=== PATIENT | female | born 1950 | race Caucasian/White ===

== ENCOUNTER 2016-04-04 13:04 | Outpatient (CLI) | payer MEDICARE, OTHER | END 2016-04-04 13:05 | disposition home or self-care (01) | DX: G47.33 Obstructive sleep apnea (adult) (pediatric) (principal) | CPT/HCPCS: 99213; G0463 ==

== ENCOUNTER 2016-05-27 07:34 | Outpatient (CLI) | payer MEDICARE, OTHER | END 2016-05-27 07:35 | disposition home or self-care (01) | DX: R30.0 Dysuria (principal) ==

== ENCOUNTER 2016-09-27 07:27 | Day surgery (SDC) | payer MEDICARE, OTHER ==
[~2016-09-27 07:27] MED LIST: LACTATED RINGERS 1,000 ML IV ONE
[2016-09-27 07:56] LABS: BASOPHILS # (AUTO) 0.1 10^3/uL (0.0-0.1); BASOPHILS % (AUTO) 1.4 %; EOSINOPHILS # (AUTO) 0.1 10^3/uL (0.0-0.7); EOSINOPHILS % (AUTO) 1.2 %; HCT - HEMATOCRIT 40.2 % (37.0-47.0); HGB - HEMOGLOBIN 13.4 g/dL (12.0-16.0); LYMPHOCYTES # (AUTO) 2.2 10^3/uL (1.5-3.5); LYMPHOCYTES % (AUTO) 20.8 %; MEAN CORPUSCULAR HGB CONC 33.4 g/dL (32.0-36.0); MEAN CORPUSCULAR VOLUME 83.9 fL (81.0-99.0); MEAN PLATELET VOLUME 7.6 fL (7.9-10.8); MONOCYTES # (AUTO) 0.7 10^3/uL (0.0-1.0); MONOCYTES % (AUTO) 6.5 %; NEUTROPHILS # (AUTO) 7.6 10^3/uL (1.5-6.6); NEUTROPHILS % (AUTO) 70.1 %; RED CELL DISTRIBUTION WIDTH 14.4 % (12.0-15.0); UNCORRECTED WHITE BLOOD COUNT 10.8 x10^3/uL; WHITE BLOOD COUNT 10.8 x10^3/uL (4.8-10.8)
[2016-09-27] MEDS ORDERED: fentaNYL 100 MCG/2 ML VIAL IVP ONE (08:16)
[2016-09-27] MEDS ORDERED: MIDAZOLAM 2 MG/2 ML VIAL IVP ONE (08:16)
[2016-09-27 09:18] VITALS: BP 157/80
== END 2016-09-27 07:28 | disposition home or self-care (01) ==
LOC: SDS 07:27
PROVIDERS: ATTEND Surgery
PROC: 0DBK8ZX Excision of Ascending Colon, Via Natural or Artificial Opening Endoscopic, Diagnostic (ICD-10-PCS; principal; 2016-09-27 08:30)
DX: Z12.11 Encounter for screening for malignant neoplasm of colon (principal); D12.2 Benign neoplasm of ascending colon; K57.30 Diverticulosis of large intestine without perforation or abscess without bleeding; R19.7 Diarrhea, unspecified; G47.30 Sleep apnea, unspecified; I10 Essential (primary) hypertension; K21.9 Gastro-esophageal reflux disease without esophagitis; F32.9 Major depressive disorder, single episode, unspecified; E11.9 Type 2 diabetes mellitus without complications; F41.9 Anxiety disorder, unspecified; Z83.71 Family history of colonic polyps; Z80.0 Family history of malignant neoplasm of digestive organs; Z79.84 Long term (current) use of oral hypoglycemic drugs; Z90.49 Acquired absence of other specified parts of digestive tract; Z87.891 Personal history of nicotine dependence; Z79.82 Long term (current) use of aspirin
CPT/HCPCS: 45384; 85025; J7120; 88305

== ENCOUNTER 2016-11-18 08:38 | Outpatient (CLI) | payer MEDICARE, OTHER ==
[2016-11-18 19:18] LABS: BASOPHILS # (AUTO) 0.1 10^3/uL (0.0-0.1); BASOPHILS % (AUTO) 0.9 %; EOSINOPHILS # (AUTO) 0.2 10^3/uL (0.0-0.7); EOSINOPHILS % (AUTO) 1.9 %; HCT - HEMATOCRIT 41.1 % (37.0-47.0); HGB - HEMOGLOBIN 13.3 g/dL (12.0-16.0); LYMPHOCYTES # (AUTO) 3.2 10^3/uL (1.5-3.5); LYMPHOCYTES % (AUTO) 27.5 %; MEAN CORPUSCULAR HEMOGLOBIN 28.1 pg (27.0-31.0); MEAN CORPUSCULAR HGB CONC 32.5 g/dL (32.0-36.0); MEAN CORPUSCULAR VOLUME 86.4 fL (81.0-99.0); MEAN PLATELET VOLUME 8.5 fL (7.9-10.8); MONOCYTES # (AUTO) 0.8 10^3/uL (0.0-1.0); MONOCYTES % (AUTO) 6.5 %; NEUTROPHILS # (AUTO) 7.4 10^3/uL (1.5-6.6); NEUTROPHILS % (AUTO) 63.2 %; NUCLEATED RED BLOOD CELLS AUTO 0.1 /100WBC; RED BLOOD COUNT 4.75 10^6/uL (4.20-5.40); RED CELL DISTRIBUTION WIDTH 14.3 % (12.0-15.0); UNCORRECTED WHITE BLOOD COUNT 11.6 x10^3/uL; WHITE BLOOD COUNT 11.6 x10^3/uL (4.8-10.8)
[2016-11-18 19:53] LABS: ALBUMIN/GLOBULIN RATIO 1.3 (1.0-2.2); BILIRUBIN,TOTAL 0.4 mg/dL (0.2-1.0); BUN - BLOOD UREA NITROGEN 21 mg/dL (6-20); CALCIUM 9.5 mg/dL (8.5-10.3); CARBON DIOXIDE - CO2 26 mmol/L (21-32); CHLORIDE 107 mmol/L (101-111); CHOL/HDL RATIO 4.4 (<4.4); CHOLESTEROL 257 mg/dL; CREATININE 1.1 mg/dL (0.4-1.0); GFR - MDRD 49 (>89); GLUCOSE 107 mg/dL (70-100); HDL CHOLESTEROL 58 mg/dL; LDL/HDL RATIO 2.3 (<4.4); POTASSIUM 4.3 mmol/L (3.5-5.0); SODIUM 142 mmol/L (135-145); TOTAL PROTEIN 7.5 g/dL (6.7-8.2); TRIGLYCERIDES 332 mg/dL; VLDL CHOLESTEROL 66 mg/dL
[2016-11-18 20:52] LABS: HEMOGLOBIN A1C 0.55 g/dL
== END 2016-11-18 08:39 | disposition home or self-care (01) ==
LOC: LAB.F 08:38
PROVIDERS: ATTEND Family Medicine
DX: E11.9 Type 2 diabetes mellitus without complications (principal); E78.5 Hyperlipidemia, unspecified
CPT/HCPCS: 36415; 80053; 80061; 82043; 83036; 84443; 85025

== ENCOUNTER 2017-01-03 09:08 | Outpatient (CLI) | payer MEDICARE, OTHER ==
--- NOTE | 2017-01-04 15:21 | Mammography Report ---
DIGITAL SCREENING MAMMOGRAM: 01/03/2017 CLINICAL INDICATION: A 66-year-old with family history of breast cancer, for screening. COMPARISON: 10/2015, 04/2014, 12/2011, 08/2010, 06/2009. TECHNIQUE: Routine CC and MLO projections were obtained of the breasts. FINDINGS: The breasts again demonstrate heterogeneously dense fibroglandular parenchyma bilaterally. Coarse and punctate, typically benign calcifications are present. No suspicious masses, clustered mi crocalcifications, or regions of architectural distortion are identified. IMPRESSION: BENIGN FINDINGS. RECOMMENDATION: ROUTINE ANNUAL SCREENING UNLESS OTHERWISE CLINICALLY INDICATED. BIRADS CATEGORY 2-BENIGN FINDINGS. STANDARD QUALIFYING STATEMENTS 1. This examination was reviewed with the aid of Computer-Aided Detection (CAD). 2. A negative or benign imaging report should not delay biopsy if clinically suspicious findings are present. Consider surgical consultation if warranted. More than 5% of cancers are not identified by i maging. 3. Dense breasts may obscure an underlying neoplasm. :9 JOB #: [id number] EXT JOB #:[id number]
== END 2017-01-03 09:09 | disposition home or self-care (01) ==
LOC: DI 09:08
PROVIDERS: ATTEND Family Medicine
DX: Z12.31 Encounter for screening mammogram for malignant neoplasm of breast (principal); Z80.3 Family history of malignant neoplasm of breast
CPT/HCPCS: 77067

== ENCOUNTER 2018-01-08 11:19 | Outpatient (CLI) | payer MEDICARE, OTHER ==
--- NOTE | 2018-01-09 14:33 | Mammography Report ---
Reason: SCREENING MAMMO Procedure Date: 01/08/2018 Accession Number: [id number] / [id number] Procedure: BRAULIO - Screening Mammo w/Parmjit CPT Code: FULL RESULT: EXAM: Screening Mammo w/Parmjit DATE: 01/08/2018 11:53 AM CLINICAL HISTORY: Routine screening TECHNIQUE: Bilateral CC and MLO views were obtained. COMPARISON: 01/03/2017, 11/12/2015, 04/21/2014 and 12/20/11 FINDINGS: The breast tissue is heterogeneously dense. There is no significant interval change. No suspicious masses, clustered microcalcifications, or regions of architectural distortion are identified. Scattered calcifications are stable. IMPRESSION: Benign findings RECOMMENDATION: Routine annual screening unless otherwise clinically indicated. BIRADS CATEGORY 2: Benign findings STANDARD QUALIFYING STATEMENTS: 1. This examination was not reviewed with the aid of Computer-Aided Detection (CAD). 2. A negative or benign imaging report should not delay biopsy if clinically suspicious findings are present. Consider surgical consultation if warrented. More than 5% of cancers are not identified by imaging. 3. Dense breasts may obscure an underlying neoplasm. 4. This examination was reviewed with the aid of 3D breast imaging (tomosynthesis).
== END 2018-01-08 11:20 | disposition home or self-care (01) ==
LOC: DI 11:19
DX: Z12.31 Encounter for screening mammogram for malignant neoplasm of breast (principal)
CPT/HCPCS: 77063; 77067

== ENCOUNTER 2018-06-08 10:30 | Outpatient (CLI) | payer MEDICARE, OTHER ==
[2018-06-08 10:48] LABS: BASOPHILS # (AUTO) 0.1 10^3/uL (0.0-0.1); BASOPHILS % (AUTO) 1.6 %; EOSINOPHILS # (AUTO) 0.2 10^3/uL (0.0-0.7); EOSINOPHILS % (AUTO) 1.8 %; HGB - HEMOGLOBIN 13.1 g/dL (12.0-16.0); LYMPHOCYTES # (AUTO) 2.4 10^3/uL (1.5-3.5); LYMPHOCYTES % (AUTO) 27.2 %; MEAN CORPUSCULAR HEMOGLOBIN 28.9 pg (27.0-31.0); MEAN CORPUSCULAR HGB CONC 33.6 g/dL (32.0-36.0); MEAN CORPUSCULAR VOLUME 86.1 fL (81.0-99.0); MEAN PLATELET VOLUME 7.9 fL (7.9-10.8); MONOCYTES # (AUTO) 0.8 10^3/uL (0.0-1.0); MONOCYTES % (AUTO) 8.7 %; NEUTROPHILS # (AUTO) 5.3 10^3/uL (1.5-6.6); NEUTROPHILS % (AUTO) 60.7 %; PLT - PLATELET COUNT 389 10^3/uL (130-450); RED BLOOD COUNT 4.52 10^6/uL (4.20-5.40); RED CELL DISTRIBUTION WIDTH 14.1 % (12.0-15.0); WHITE BLOOD COUNT 8.7 x10^3/uL (4.8-10.8)
[2018-06-08 11:07] LABS: HB2 TOTAL 14.3 g/dL; HEMOGLOBIN A1C 0.57 g/dL; HEMOGLOBIN A1C % 5.8 % (4.6-6.2)
[2018-06-08 11:13] LABS: ALBUMIN 4.4 g/dL (3.2-5.5); ALBUMIN/GLOBULIN RATIO 1.3 (1.0-2.2); ALKALINE PHOSPHATASE 65 IU/L (42-121); ALT ALANINE AMINOTRANSFERASE 13 IU/L (10-60); AST ASPARTATE AMINOTRANSFERASE 17 IU/L (10-42); BILIRUBIN,TOTAL 0.5 mg/dL (0.2-1.0); BUN - BLOOD UREA NITROGEN 19 mg/dL (6-20); CALCIUM 9.3 mg/dL (8.5-10.3); CARBON DIOXIDE - CO2 24 mmol/L (21-32); CHLORIDE 104 mmol/L (101-111); CHOL/HDL RATIO 4.1 (<4.4); CHOLESTEROL 219 mg/dL; CREATININE 0.9 mg/dL (0.4-1.0); GFR - MDRD 62 (>89); GLUCOSE 95 mg/dL (70-100); HDL CHOLESTEROL 53 mg/dL; LDL CHOLESTEROL,CALCULATED 129 mg/dL; LDL/HDL RATIO 2.4 (<4.4); SODIUM 136 mmol/L (135-145); TOTAL PROTEIN 7.7 g/dL (6.7-8.2); VLDL CHOLESTEROL 37 mg/dL
== END 2018-06-08 10:31 | disposition home or self-care (01) ==
LOC: LAB 10:30
PROVIDERS: ATTEND Family Medicine
DX: E11.9 Type 2 diabetes mellitus without complications (principal)
CPT/HCPCS: 36415; 80053; 80061; 82043; 83036; 83721; 84443; 85025

== ENCOUNTER 2018-07-14 11:28 | Emergency (ER) | payer MEDICARE, OTHER ==
[2018-07-14 11:51] LABS: BASOPHILS # (AUTO) 0.1 10^3/uL (0.0-0.1); BASOPHILS % (AUTO) 0.7 %; HGB - HEMOGLOBIN 14.5 g/dL (12.0-16.0); LYMPHOCYTES # (AUTO) 0.8 10^3/uL (1.5-3.5); LYMPHOCYTES % (AUTO) 5.5 %; MEAN CORPUSCULAR HEMOGLOBIN 28.4 pg (27.0-31.0); MEAN CORPUSCULAR HGB CONC 33.4 g/dL (32.0-36.0); MEAN CORPUSCULAR VOLUME 85.2 fL (81.0-99.0); MEAN PLATELET VOLUME 7.7 fL (7.9-10.8); MONOCYTES # (AUTO) 0.4 10^3/uL (0.0-1.0); MONOCYTES % (AUTO) 2.4 %; NEUTROPHILS % (AUTO) 91.4 %; PLT - PLATELET COUNT 450 10^3/uL (130-450); RED BLOOD COUNT 5.11 10^6/uL (4.20-5.40); RED CELL DISTRIBUTION WIDTH 14.7 % (12.0-15.0); WHITE BLOOD COUNT 15.3 x10^3/uL (4.8-10.8)
[2018-07-14 12:04] LABS: ALBUMIN 4.6 g/dL (3.2-5.5); ALBUMIN/GLOBULIN RATIO 1.1 (1.0-2.2); BILIRUBIN,TOTAL 0.5 mg/dL (0.2-1.0); TOTAL PROTEIN 8.7 g/dL (6.7-8.2)
--- NOTE | 2018-07-14 12:15 | XRAY Report ---
Reason: chest pain Procedure Date: 07/14/2018 Accession Number: [id number] / [id number] Procedure: XR - Chest 1 View X-Ray CPT Code: 71605 FULL RESULT: EXAM: CHEST RADIOGRAPHY EXAM DATE: 07/14/2018 11:56 AM. CLINICAL HISTORY: Chest pain. COMPARISON: 01/28/2015 7:24 AM. TECHNIQUE: 1 view. FINDINGS: Lungs/Pleura: No focal opacities evident. No pleural effusion. No pneumothorax. Mediastinum: Within exam limitations, the cardiomediastinal contour is normal. Other: Cervical spine postoperative changes redemonstrated. IMPRESSION: Normal single view chest. RADIA
[2018-07-14] MEDS ORDERED: HYDROmorphone 1 MG/ML CARPUJECT IVP STA (12:25)
[2018-07-14] MEDS ORDERED: ONDANSETRON 4 MG/2 ML VIAL IVP STA (12:25)
--- NOTE | 2018-07-14 12:28 | ED Physician Documentation ---
PD HPI ABD PAIN - Stated complaint Stated Complaint: CHEST PAIN/VOMITING - Chief complaint Chief Complaint: Cardiac - History obtained from History obtained from: Patient - History of Present Illness Timing - onset: Today (She was awoken at 3 AM by severe epigastric pain that is nonradiating associated with vomiting. There is no blood in the vomit. Her last BM was yesterday, she does note lack of flatus today. She has had occasional episodes like this in the past without specific diagnosis. She had a remote colectomy without ostomy for diverticulitis.) Review of Systems Ten Systems: 10 systems reviewed and negative Constitutional: reports: Reviewed and negative Throat: reports: Reviewed and negative Respiratory: reports: Reviewed and negative PD PAST MEDICAL HISTORY - Past Medical History Past Medical History: Yes Cardiovascular: Hypertension, High cholesterol Respiratory: Asthma, Sleep apnea, CPAP use Endocrine/Autoimmune: Type 2 diabetes GI: GERD : None Psych: Depression, Anxiety, Bipolar disorder, Panic attacks, Claustrophobia Musculoskeletal: Osteoarthritis, Osteoporosis Derm: None - Past Surgical History Past Surgical History: Yes General: Bowel surgery HEENT: Tonsil/Adenoidectomy - Present Medications Home Medications: Ambulatory Orders Medication Instructions Recorded Confirmed Amlodipine Besylate 5 mg PO DAILY 01/28/15 09/22/16 Aspirin [Aspir 81] 81 mg PO DAILY 01/28/15 09/26/16 Cetirizine [ZyrTEC] 10 mg PO DAILY 01/28/15 09/26/16 Cholecalciferol (Vitamin D3) 1,000 unit PO DAILY 01/28/15 09/26/16 [Vitamin D] Citalopram [CeleXA] 20 mg PO DAILY 01/28/15 09/26/16 Lisinopril 10 mg PO DAILY 01/28/15 09/26/16 Metformin HCl 500 mg PO BID 01/28/15 09/22/16 Omeprazole 20 mg PO BID 01/28/15 09/22/16 Simvastatin 20 mg PO DAILY 01/28/15 09/26/16 traZODone [Desyrel] 100 mg PO HS 01/28/15 09/22/16 OLANZapine [Olanzapine] 5 mg PO DAILY 09/22/16 09/22/16 Hydrocodone/Acetaminophen 1 - 2 each PO Q6H PRN #14 tablet 07/14/18 [Hydrocodon-Acetaminophen 5-325] Omeprazole 20 mg PO BID #180 capsule. 07/14/18 Ondansetron Odt [Zofran] 4 mg TL Q6H PRN #10 tablet 07/14/18 - Allergies Allergies/Adverse Reactions: Allergies Allergy/AdvReac Type Severity Reaction Status Date / Time cephalexin monohydrate * Allergy Unknown Verified 07/14/18 11:39 [From Keflex] - Social History Does the pt smoke?: No Smoking Status: Never smoker Does the pt drink ETOH?: Yes Does the pt have substance abuse?: Yes - Immunizations Immunizations are current?: Yes - POLST Patient has POLST: No PD ED PE NORMAL - Vitals Vital signs reviewed: Yes - General General: Alert and oriented X 3, Other (She is uncomfortable and retching) - HEENT HEENT: PERRL, EOMI - Neck Neck: Supple, no meningeal sign, No bony TTP - Cardiac Cardiac: RRR, No murmur - Respiratory Respiratory: No respiratory distress, Clear bilaterally - Abdomen Abdomen: Other (Absent bowel tones and very tender in the upper abdomen) - Back Back: No CVA TTP, No spinal TTP - Derm Derm: Normal color, Warm and dry - Extremities Extremities: No edema, No calf tenderness / cord - Neuro Neuro: Alert and oriented X 3, Normal speech - Psych Psych: Normal mood, Normal affect Results - Vitals Vitals: Vital Signs - 24 hr 07/14/18 07/14/18 11:32 12:14 Temperature 36.9 C Heart Rate 76 82 Respiratory 14 14 Rate Blood Pressure 192/91 H 207/99 H O2 Saturation 100 18 L Oxygen O2 Source Room air - EKG (time done) 1137 Rate: Rate (enter#) (78) Rhythm: NSR [place]: Normal Intervals: Normal TN QRS: Normal Ischemia: Normal ST segments Compare to prior EKG: Unchanged from prior EKG (no chg from 01/28/15) Computer interpretation: Agree with computer - Labs Labs: Laboratory Tests 07/14/18 07/14/18 07/14/18 11:48 11:48 11:48 WBC 15.3 H RBC 5.11 Hgb 14.5 Hct 43.6 MCV 85.2 MCH 28.4 MCHC 33.4 RDW 14.7 Plt Count 450 MPV 7.7 L Neut # (Auto) 14.0 H Lymph # (Auto) 0.8 L [place] # (Auto) 0.4 Eos # (Auto) 0.0 Baso # (Auto) 0.1 Absolute Nucleated RBC 0.01 Nucleated RBC % 0.1 Sodium 136 Potassium 4.3 Chloride 96 L Carbon Dioxide 22 Anion Gap 18.0 H BUN 14 Creatinine 1.0 Estimated GFR (MDRD) 55 L Glucose 164 H Calcium 10.0 Total Bilirubin 0.5 AST 25 ALT 14 Alkaline Phosphatase 84 Troponin I < 0.04 Total Protein 8.7 H Albumin 4.6 Globulin 4.1 Albumin/Globulin Ratio 1.1 Lipase 36 Urine Color Urine Clarity Urine pH Ur Specific [place] Urine Protein Urine Glucose (UA) Urine Ketones Urine Occult Blood Urine Nitrite Urine Bilirubin Urine Urobilinogen Ur Leukocyte Esterase Urine RBC Urine WBC Ur Squamous Epith Cells Urine Bacteria Ur Microscopic Review Urine Culture Comments 07/14/18 13:10 WBC RBC Hgb Hct MCV MCH MCHC RDW Plt Count MPV Neut # (Auto) Lymph # (Auto) [place] # (Auto) Eos # (Auto) Baso # (Auto) Absolute Nucleated RBC Nucleated RBC % Sodium Potassium Chloride Carbon Dioxide Anion Gap BUN Creatinine Estimated GFR (MDRD) Glucose Calcium Total Bilirubin AST ALT Alkaline Phosphatase Troponin I Total Protein Albumin Globulin Albumin/Globulin Ratio Lipase Urine Color YELLOW Urine Clarity CLEAR Urine pH 8.5 H Ur Specific [place] 1.010 Urine Protein 30 H Urine Glucose (UA) NEGATIVE Urine Ketones TRACE Urine Occult Blood SMALL H Urine Nitrite NEGATIVE Urine Bilirubin NEGATIVE Urine Urobilinogen 0.2 (NORMAL) Ur Leukocyte Esterase NEGATIVE Urine RBC 6-10 H Urine WBC 0-3 Ur Squamous Epith Cells MOD Squamous H Urine Bacteria Rare Ur Microscopic Review INDICATED Urine Culture Comments NOT INDICATED - Rads (name of study) 1v chest Radiology: EMP read contemporaneously (NAD) CT A/P Radiology: EMP read contemporaneously (She potentially has some thickening of the wall of the distal stomach, no other clear acute abnormalities on CT.) PD MEDICAL DECISION MAKING - ED course ED course: 67-year-old woman presents with occasional and recurrent upper abdominal pain with tenderness, it radiates into the chest and therefore her cardiac work-up was done prior to my evaluation which was negative. She was fairly tender which improved significantly after IV pain and nausea medicine. CT scan is shown, this is most consistent with probably mild recurrent gastric outlet obstruction from scarring from reflux. She already takes Prilosec and we will double her dose and advised follow-up for upper endoscopy. Of note she had complete relief with a GI cocktail after the CT scan. Departure - Departure Disposition: 01 Home, Self Care Clinical Impression: Gastric wall thickening Abdominal pain Qualifiers: Abdominal location: epigastric Qualified Code(s): R10.13 - Epigastric pain Condition: Good Record reviewed to determine appropriate education?: Yes Instructions: ED Abdominal Pain Unkn Cause Follow-Up: Vishnu Dos Santos MD [Provider Admit Priv/Credential] - Prescriptions: Hydrocodone/Acetaminophen [Hydrocodon-Acetaminophen 5-325] 1 - 2 each PO Q6H PRN #14 tablet PRN Reason: pain Omeprazole 20 mg PO BID #180 capsule. Ondansetron Odt [Zofran] 4 mg TL Q6H PRN #10 tablet PRN Reason: Nausea / Vomiting Comments: FOLLOWUP WITH THE SURGEON FOR EVALUATION FOR UPPER ENDOSCOPY RETURN FOR NEW OR WORSENING OR PERSISTENT SYMPTOMS
[2018-07-14] MEDS ORDERED: IOVERSOL 320 100 ML VIAL IVP ONE ×2 (12:36→12:57)
[2018-07-14 13:27] LABS: BILIRUBIN,URINE NEGATIVE (NEGATIVE); GLUCOSE, URINE (UA) NEGATIVE (NEGATIVE); KETONES,URINE (UA) TRACE mg/dL (NEGATIVE); LEUKOCYTE ESTERASE, URINE NEGATIVE (NEGATIVE); NITRITE,URINE NEGATIVE (NEGATIVE); OCCULT BLOOD,URINE SMALL (NEGATIVE); PH,URINE 8.5 PH (5.0-7.5); PROTEIN,URINE 30 mg/dL (NEGATIVE); UROBILINOGEN,URINE 0.2 (NORMAL) E.U./dL (NORMAL)
[2018-07-14 13:30] LABS: CLARITY,URINE CLEAR (CLEAR)
--- NOTE | 2018-07-14 13:40 | CT Report ---
Reason: IV only, upper abd pain, vomiting, ?SBO Procedure Date: 07/14/2018 Accession Number: [id number] / [id number] Procedure: CT - Abdomen/Pelvis W CPT Code: FULL RESULT: EXAM: CT ABDOMEN AND PELVIS EXAM DATE: 07/14/2018 01:05 PM. CLINICAL HISTORY: IV only, upper abd pain, vomiting, ?SBO. COMPARISONS: ABD/PEL 09/28/2005 3:55 PM, axial images only. TECHNIQUE: Routine helical CT imaging was performed through the abdomen and pelvis. IV contrast: OPTI 320 90 ML. Enteric contrast: No. Reconstructions: Coronal and sagittal. In accordance with CT protocol optimization, one or more of the following dose reduction techniques were utilized for this exam: automated exposure control, adjustment of mA and/or KV based on patient size, or use of iterative reconstructive technique. FINDINGS: Lung Bases: Increased very mild basilar atelectasis or scarring. Small hiatal hernia, increased. Liver: Normal. No masses. Gallbladder/Bile Ducts: Stable appearance of the fundus which may be related to a phrygian cap. Mild focal wall thickening, polyp or stone at that level is not excluded but the appearance is stable and consistent with a benign finding. No pericholecystic edema/inflammation. No biliary ductal dilatation. Spleen: Normal. Pancreas: Normal. Adrenal Glands: Normal. Kidneys: Normal. No masses or hydronephrosis. Peritoneal Cavity/Bowel: Proximal sigmoid postoperative changes. No free fluid, free air or adenopathy. No masses or definite acute inflammatory process. Colonic diverticulosis without evidence of diverticulitis. The appendix is well visualized and normal. No bowel dilatation/obstruction. Mild circumferential wall prominence of the distal stomach is likely attributable to nondistention or peristalsis. No adjacent edema demonstrated. Pelvic Organs: Unremarkable bladder. The uterus is absent. Vasculature: Substantial calcifications, without aneurysm. Bones: Lumbar degenerative facet disease. No acute abnormality. Other: Midline anterior abdominal wall probable postoperative change with small foci of midline discontinuity/hernia above and below the level of the umbilicus. No bowel herniation. IMPRESSION: 1. No definite acute abnormality of the abdomen or pelvis. No bowel obstruction. 2. Mild circumferential prominence of the wall of the distal stomach may represent a normal and incidental findings. Abnormal wall thickening/edema cannot definitely be excluded. 2. Chronic and postoperative findings, as above. RADIA
[2018-07-14 13:43] LABS: BACTERIA,URINE Rare /HPF (None Seen); SQUAMOUS EPITHELIAL CELL,UR MOD Squamous (<= Few)
[2018-07-14] MEDS ORDERED: MAG HYDROX/AL HYDROX/SIMETH 30 ML UDC PO STA (13:45)
[2018-07-14] MEDS ORDERED: LIDOCAINE VISCOUS 2% 15 ML UDC MM STA (13:45)
[2018-07-14 14:48] VITALS: BP 198/99
== END 2018-07-14 15:07 | disposition home or self-care (01) ==
LOC: ED 11:28
DX: R10.13 Epigastric pain (principal); K31.89 Other diseases of stomach and duodenum; I10 Essential (primary) hypertension; E11.9 Type 2 diabetes mellitus without complications; Z87.19 Personal history of other diseases of the digestive system; Z79.84 Long term (current) use of oral hypoglycemic drugs
CPT/HCPCS: 36415; 71045; 74177; 80053; 81001; 83690; 84484; 85025; 93005; 96374; 99283; 99284; A9270; J1170; Q9967; 81003; 87086

== ENCOUNTER 2018-09-24 08:00 | Outpatient (CLI) | payer MEDICARE, OTHER ==
[2018-09-24 13:04] LABS: HB2 TOTAL 14.2 g/dL; HEMOGLOBIN A1C 0.57 g/dL; HEMOGLOBIN A1C % 5.8 % (4.6-6.2)
[2018-09-25 11:58] LABS: HEPATITIS C ANTIBODY NON-REACTIVE (NON-REACTIVE)
== END 2018-09-24 23:59 | disposition home or self-care (01) ==
LOC: LAB.WCP 08:00
PROVIDERS: ATTEND Family Medicine
DX: E11.9 Type 2 diabetes mellitus without complications (principal); Z23 Encounter for immunization; Z11.59 Encounter for screening for other viral diseases
CPT/HCPCS: 36415; 83036; 86765; 86803